=== PATIENT | female | born 1975 | race Caucasian/White ===

== ENCOUNTER 2016-05-11 17:53 | Emergency (ER) | payer OTHER ==
[2016-05-11 18:16] VITALS: BP 116/78
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
== END 2016-05-11 20:23 ==
LOC: ERH 17:53
DX: T76.11XA Adult physical abuse, suspected, initial encounter (principal); R68.84 Jaw pain; R07.81 Pleurodynia; M79.601 Pain in right arm; M79.602 Pain in left arm
CPT/HCPCS: 71100-LT; 73000-LT; 81025